=== PATIENT | female | born 1955 | race Hispanic/Latino ===

== ENCOUNTER 2021-06-25 23:44 | Emergency (ER) | payer MEDICARE ==
[~2021-06-25] VITALS: Ht 165.1 cm; Wt 63.2 kg
[~2021-06-25 23:44] MED LIST: ALLERGY EYE D0.025 % OP; AMOXICILLIN500 MG OR; HYDROCORTISO2.51 EX; LORTAB 7.5 OR; NO HOME MEDS; PERCOCET1 TA1 OR; PREDNISONE10 MG PO; TYLENOL650 MG RE; [UNRECOGNIZED DRUG - REMARK] PO
[2021-06-26 00:06] VITALS: BP 148/60
[2021-06-26 00:16] VITALS: BP 158/77
[2021-06-26 00:31] VITALS: BP 151/65
[2021-06-26 00:45] VITALS: BP 152/64
[2021-06-26] MEDS ORDERED: FISH OIL600 MG PO (00:47)
[2021-06-26] MEDS ORDERED: VITAMIN D2000 UNI1 PO (00:48)
[2021-06-26] MEDS ORDERED: CALCIUM1250 MG PO (00:50)
[2021-06-26] MEDS ORDERED: LIPITOR10 M1 PO (00:51)
[2021-06-26 00:58] VITALS: BP 152/64
== END 2021-06-26 01:20 | disposition home or self-care (01) ==
LOC: ED 23:44
DX: S80.01XA Contusion of right knee, initial encounter (principal); S80.211A Abrasion, right knee, initial encounter; W01.0XXA Fall on same level from slipping, tripping and stumbling without subsequent striking against object, initial encounter; Y92.481 Parking lot as the place of occurrence of the external cause